=== PATIENT | female | born 1990 | race Hispanic/Latino ===

== ENCOUNTER 2021-12-21 21:11 | Inpatient (IN) | payer SELFPAY ==
[~2021-12-21] VITALS: Ht 149.9 cm; Wt 77.1 kg
[2021-12-21] MEDS ORDERED: SODIUM CHLORIDE 0.9% 1000ML 1,000 ML IV STA (21:27)
[2021-12-21 22:25] LABS: BASOPHILS # (AUTO) 0.1 (0.0-0.1); BASOPHILS % 0.7 % (0.0-1.0); EOSINOPHILS # (AUTO) 0.3 (0.0-0.4); HEMATOCRIT 38.1 % (34.2-44.1); HEMOGLOBIN 12.6 g/dL (12.0-16.0); LYMPHOCYTES # (AUTO) 2.1 (1.0-3.2); LYMPHOCYTES % 19.8 % (18.0-39.1); MEAN CORPUSCULAR HEMOGLOBIN 31.3 pg (28-32); MEAN CORPUSCULAR HGB CONC 33.1 g/dL (31-35); MEAN CORPUSCULAR VOLUME 94.5 fL (81-99); MONOCYTES # (AUTO) 0.9 (0.2-0.8); MONOCYTES % 8.2 % (4.4-11.3); NEUTROPHILS # (AUTO) 7.2 (2.1-6.9); NEUTROPHILS % 67.6 % (38.7-80.0); PLATELET COUNT 257 x10e3/uL (140-360); RED BLOOD COUNT 4.03 x10e6/uL (3.6-5.1)
[2021-12-21] MEDS ORDERED: FENTANYL CITRATE/PF 100MCG/2 ML INJ IV PRN (22:30)
[2021-12-21 22:43] LABS: ALBUMIN 3.5 g/dL (3.5-5.0); ALBUMIN/GLOBULIN RATIO 0.9 (0.8-2.0); ANION GAP 18.5 mmol/L (8-16); CALCIUM 9.3 mg/dL (8.4-10.2); CREATININE, SERUM 0.61 mg/dL (0.57-1.11); POTASSIUM 3.5 mmol/L (3.5-5.1)
[2021-12-21 22:45] LABS: CLARITY,URINE CLEAR (CLEAR); COLOR,URINE AMBER (YELLOW); LEUKOCYTE ESTERASE ,URINE NEGATIVE (NEGATIVE); NITRITE,URINE NEGATIVE (NEGATIVE)
[2021-12-21] MEDS ORDERED: ONDANSETRON HCL INJ 2MG/ML 2ML 2 MG/ML VIAL ONE (22:45)
[2021-12-21 22:46] LABS: BACTERIA,URINE RARE /HPF; EPITHELIAL CELLS,URINE FEW /LPF; KETONES,URINE >=160 (NEGATIVE); PROTEIN,URINE DIPSTICK NEGATIVE (NEGATIVE); RBC,URINE 0-5 /HPF (0-5); URINE UROBILINOGEN 1 mg/dL (0.2 - 1); WBC,URINE (MAN) 0-5 /HPF (0-5)
[2021-12-21] MEDS ORDERED: IOPAMIDOL 370 MG/ML 100 ML INFUS..BTL INJ ONE (23:24)
[2021-12-22] VITALS (10 sets, daily range): BP systolic 103–139; BP diastolic 62–88
[2021-12-22] MEDS: Morphine 4mg INJECTION 4 MG/ML INJ IV PRN ×4 (03:06→23:10)
[2021-12-22] MEDS: ONDANSETRON HCL INJ 2MG/ML 2ML 2 MG/ML VIAL IV PRN (03:06)
[2021-12-22] MEDS: DEXTROSE 5%/0.9% SOD CHL 1,000 ML IV SCH ×2 (09:55→23:10)
[2021-12-23] VITALS (7 sets, daily range): BP systolic 103–123; BP diastolic 66–80
[2021-12-23] MEDS: Morphine 4mg INJECTION 4 MG/ML INJ IV PRN (01:22)
[2021-12-23 06:21] LABS: BASOPHILS # (AUTO) 0.1 (0.0-0.1); BASOPHILS % 0.7 % (0.0-1.0); EOSINOPHILS # (AUTO) 0.6 (0.0-0.4); EOSINOPHILS % 6.4 % (0.0-6.0); HEMATOCRIT 34.8 % (34.2-44.1); HEMOGLOBIN 11.3 g/dL (12.0-16.0); LYMPHOCYTES # (AUTO) 1.6 (1.0-3.2); LYMPHOCYTES % 18.2 % (18.0-39.1); MEAN CORPUSCULAR HGB CONC 32.5 g/dL (31-35); MEAN CORPUSCULAR VOLUME 95.3 fL (81-99); MONOCYTES # (AUTO) 0.8 (0.2-0.8); MONOCYTES % 9.3 % (4.4-11.3); NEUTROPHILS # (AUTO) 5.6 (2.1-6.9); NEUTROPHILS % 64.5 % (38.7-80.0); PLATELET COUNT 232 x10e3/uL (140-360); RED BLOOD COUNT 3.65 x10e6/uL (3.6-5.1); RED CELL DISTRIBUTION WIDTH 13.2 % (11.7-14.4)
[2021-12-23 06:39] LABS: ALBUMIN 2.9 g/dL (3.5-5.0); ANION GAP 12.1 mmol/L (8-16); CALCIUM 8.5 mg/dL (8.4-10.2); CREATININE, SERUM 0.71 mg/dL (0.57-1.11); POTASSIUM 3.1 mmol/L (3.5-5.1)
[2021-12-23] MEDS: DEXTROSE 5%/0.9% SOD CHL 1,000 ML IV SCH (07:26)
[2021-12-23] MEDS ORDERED: ONDANSETRON HCL INJ 2MG/ML 2ML 2 MG/ML VIAL IV PRN (09:30)
[2021-12-23] MEDS: POTASSIUM CHLORIDE 10MEQ EA PO SCH ×3 (09:34→16:00)
[2021-12-23] MEDS: ACETAMINOPHEN/CODEINE 300MG - 30MG TAB PO PRN ×2 (14:05→17:53)
[2021-12-23] MEDS ORDERED: POTASSIUM CHLORIDE 10MEQ EA PO ONE (16:30)
[2021-12-24] VITALS (8 sets, daily range): BP systolic 120–133; BP diastolic 68–83
[2021-12-24 06:39] LABS: ALANINE AMINOTRANSFERASE 288 IU/L (0-55); ALBUMIN/GLOBULIN RATIO 0.9 (0.8-2.0); ALKALINE PHOSPHATASE 244 IU/L (40-150); ANION GAP 11.5 mmol/L (8-16); BLOOD UREA NITROGEN < 5 mg/dL (7-26); BUN/CREATININE RATIO 8 (6-25); CARBON DIOXIDE 26 mmol/L (22-29); CHLORIDE 105 mmol/L (98-107); CREATININE, SERUM 0.66 mg/dL (0.57-1.11); GLUCOSE 110 mg/dL (74-118); POTASSIUM 3.5 mmol/L (3.5-5.1); SODIUM 139 mmol/L (136-145)
[2021-12-24] MEDS: ACETAMINOPHEN/CODEINE 300MG - 30MG TAB PO PRN (14:17)
[2021-12-24] MEDS: ONDANSETRON HCL INJ 2MG/ML 2ML 2 MG/ML VIAL IV PRN (18:08)
[2021-12-24] MEDS: METOPROLOL TARTRATE 25 MG TAB PO SCH (21:22)
[2021-12-25] VITALS (8 sets, daily range): BP systolic 105–127; BP diastolic 66–89
[2021-12-25 05:57] LABS: BASOPHILS # (AUTO) 0.1 (0.0-0.1); BASOPHILS % 0.6 % (0.0-1.0); EOSINOPHILS # (AUTO) 0.6 (0.0-0.4); EOSINOPHILS % 5.9 % (0.0-6.0); HEMATOCRIT 37.8 % (34.2-44.1); HEMOGLOBIN 12.3 g/dL (12.0-16.0); LYMPHOCYTES # (AUTO) 1.6 (1.0-3.2); LYMPHOCYTES % 16.5 % (18.0-39.1); MEAN CORPUSCULAR HEMOGLOBIN 31.1 pg (28-32); MEAN CORPUSCULAR HGB CONC 32.5 g/dL (31-35); MEAN CORPUSCULAR VOLUME 95.5 fL (81-99); MONOCYTES # (AUTO) 0.8 (0.2-0.8); MONOCYTES % 8.5 % (4.4-11.3); NEUTROPHILS # (AUTO) 6.4 (2.1-6.9); NEUTROPHILS % 67.5 % (38.7-80.0); PLATELET COUNT 239 x10e3/uL (140-360); RED BLOOD COUNT 3.96 x10e6/uL (3.6-5.1); RED CELL DISTRIBUTION WIDTH 13.8 % (11.7-14.4)
[2021-12-25 06:26] LABS: ALBUMIN 3.2 g/dL (3.5-5.0); ALBUMIN/GLOBULIN RATIO 0.9 (0.8-2.0); ANION GAP 12.6 mmol/L (8-16); CALCIUM 8.9 mg/dL (8.4-10.2); CREATININE, SERUM 0.72 mg/dL (0.57-1.11); MAGNESIUM 2.1 MG/DL (1.3-2.1); PHOSPHORUS 3.3 MG/DL (2.3-4.7); POTASSIUM 3.6 mmol/L (3.5-5.1)
[2021-12-25 06:52] LABS: THYROID STIMULATING HORMONE 1.16 uIU/mL (0.350-4.940)
[2021-12-25] MEDS: METOPROLOL TARTRATE 25 MG TAB PO SCH ×2 (08:31→17:27)
[2021-12-25] MEDS ORDERED: SODIUM CHLORIDE 0.9% 250ML 250 ML ONE (09:25)
[2021-12-25] MEDS ORDERED: LACTATED RINGER'S 1,000 ML INJ ONE (15:00)
[2021-12-25] MEDS ORDERED: SUGAMMADEX SODIUM 200 MG/2 ML VIAL IV ONE (16:20)
[2021-12-25] MEDS ORDERED: ACETAMINOPHEN 1000 MG/100 ML 0 ML IV ONE ×2 (16:21→16:59)
[2021-12-25] MEDS ORDERED: HYOSCYAMINE SULFATE 0.5 MG/ML INJ ONE (16:21)
[2021-12-25] MEDS ORDERED: GLUCAGON FOR INJ 1 MG VIAL ONE ×2 (16:21)
[2021-12-25] MEDS ORDERED: SODIUM CHLORIDE 0.9% 1000ML 1,000 ML IV SCH (16:30)
[2021-12-25] MEDS ORDERED: ONDANSETRON HCL INJ 2MG/ML 2ML 2 MG/ML VIAL IV PRN ×2 (16:30→18:30)
[2021-12-25] MEDS ORDERED: IOPAMIDOL 300MG/ML 50ML INFUS..BTL IV ONE (16:35)
[2021-12-25] MEDS: ACETAMINOPHEN 325 MG TAB PO PRN (17:28)
[2021-12-25] MEDS ORDERED: PIPERACILLIN/TAZOBACTAM 4.5 GM in SODIUM CHLORIDE 0.9% 100 ML IV SCH (18:00)
[2021-12-26] VITALS (7 sets, daily range): BP systolic 100–123; BP diastolic 68–90
[2021-12-26 05:41] LABS: BASOPHILS # (AUTO) 0.1 (0.0-0.1); BASOPHILS % 0.7 % (0.0-1.0); EOSINOPHILS # (AUTO) 0.4 (0.0-0.4); EOSINOPHILS % 3.9 % (0.0-6.0); HEMATOCRIT 35.9 % (34.2-44.1); HEMOGLOBIN 12.2 g/dL (12.0-16.0); LYMPHOCYTES # (AUTO) 1.8 (1.0-3.2); LYMPHOCYTES % 19.3 % (18.0-39.1); MEAN CORPUSCULAR HEMOGLOBIN 31.4 pg (28-32); MEAN CORPUSCULAR VOLUME 92.3 fL (81-99); MONOCYTES # (AUTO) 0.8 (0.2-0.8); NEUTROPHILS # (AUTO) 6.1 (2.1-6.9); NEUTROPHILS % 66.1 % (38.7-80.0); PLATELET COUNT 241 x10e3/uL (140-360); RED BLOOD COUNT 3.89 x10e6/uL (3.6-5.1); RED CELL DISTRIBUTION WIDTH 14.1 % (11.7-14.4)
[2021-12-26 06:13] LABS: ALBUMIN 3.1 g/dL (3.5-5.0); ALBUMIN/GLOBULIN RATIO 0.8 (0.8-2.0); ANION GAP 15.5 mmol/L (8-16); CALCIUM 9.3 mg/dL (8.4-10.2); CREATININE, SERUM 0.65 mg/dL (0.57-1.11); POTASSIUM 3.5 mmol/L (3.5-5.1)
[2021-12-26] MEDS: METOPROLOL TARTRATE 25 MG TAB PO SCH ×2 (08:43→17:00)
[2021-12-26] MEDS ORDERED: FENTANYL CITRATE/PF 100MCG/2 ML INJ ONE (12:37)
[2021-12-26] MEDS ORDERED: LACTATED RINGER'S 1,000 ML INJ ONE (13:30)
[2021-12-26] MEDS ORDERED: LACTATED RINGER'S 1,000 ML ONE (13:46)
[2021-12-26] MEDS ORDERED: IOPAMIDOL 300MG/ML 50ML INFUS..BTL IV ONE (15:43)
[2021-12-26] MEDS ORDERED: INDOMETHACIN 50 MG SUPP.RECT RC ONE (15:44)
[2021-12-26] MEDS ORDERED: GLUCAGON FOR INJ 1 MG VIAL ONE (16:20)
[2021-12-26] MEDS ORDERED: LIDOCAINE HCL 2% LOCAL INJ 5 ML SDV VIAL INJ ONE (17:24)
[2021-12-26] MEDS ORDERED: SUCCINYLCHOLINE CHLORIDE 20 MG/ML 10ML VIAL ONE (17:24)
[2021-12-26] MEDS ORDERED: SEVOFLURANE INHAL SOLN 250 ML PEN BTL ONE (17:24)
[2021-12-26] MEDS ORDERED: PROPOFOL IV EMULSION 10 MG/ML 20 ML VIAL ONE (17:24)
[2021-12-26] MEDS ORDERED: ONDANSETRON HCL INJ 2MG/ML 2ML 2 MG/ML VIAL ONE (17:24)
[2021-12-26] MEDS ORDERED: POVIDONE IODINE 0.05% 0.05 % ML PO ONE (17:24)
[2021-12-26] MEDS ORDERED: DEXAMETHASONE SOD PHOS INJ 4 MG/ML SDV ONE (17:24)
[2021-12-26] MEDS: ACETAMINOPHEN 325 MG TAB PO PRN (23:20)
[2021-12-27] VITALS (8 sets, daily range): BP systolic 91–135; BP diastolic 60–91
[2021-12-27 06:26] LABS: ALBUMIN 3.2 g/dL (3.5-5.0); ALBUMIN/GLOBULIN RATIO 0.9 (0.8-2.0); ANION GAP 15.8 mmol/L (8-16); CALCIUM 9.1 mg/dL (8.4-10.2); CREATININE, SERUM 0.67 mg/dL (0.57-1.11); POTASSIUM 3.8 mmol/L (3.5-5.1)
[2021-12-27] MEDS: METOPROLOL TARTRATE 25 MG TAB PO SCH ×2 (08:33→17:00)
[2021-12-27 16:50] LABS: ALBUMIN 3.2 g/dL (3.5-5.0); ALBUMIN/GLOBULIN RATIO 0.9 (0.8-2.0); ANION GAP 13.1 mmol/L (8-16); CALCIUM 9.1 mg/dL (8.4-10.2); CREATININE, SERUM 0.79 mg/dL (0.57-1.11); POTASSIUM 3.1 mmol/L (3.5-5.1)
[2021-12-28] VITALS: BP 108/68
[2021-12-28 04:00] VITALS: BP 102/62
[2021-12-28 06:47] LABS: ALBUMIN 3.1 g/dL (3.5-5.0); ALBUMIN/GLOBULIN RATIO 0.9 (0.8-2.0); ANION GAP 15.3 mmol/L (8-16); CALCIUM 8.9 mg/dL (8.4-10.2); CREATININE, SERUM 0.68 mg/dL (0.57-1.11); POTASSIUM 3.3 mmol/L (3.5-5.1)
[2021-12-28 07:53] VITALS: BP 104/65
[2021-12-28 08:00] VITALS: BP 104/65
[2021-12-28] MEDS: METOPROLOL TARTRATE 25 MG TAB PO SCH (08:36)
[2021-12-28 11:15] VITALS: BP 100/64
[2021-12-28] MEDS ORDERED: ONDANSETRON HCL 4 MG ORAL DISINTEGRATING TAB PO PRN (12:00)
[2021-12-29] MEDS ORDERED: PANTOPRAZOLE SOD 40 MG TABEC PO SCH (07:30)
== END 2021-12-28 14:55 | disposition home or self-care (01) | DRG 446 ==
LOC: ER 21:22 → ERHOLD 12-22 00:57 → MED/SURG2 12-22 02:24
PROVIDERS: ADMIT Internal Medicine; ATTEND Internal Medicine
PROC: 02HV33Z Insertion of Infusion Device into Superior Vena Cava, Percutaneous Approach (ICD-10-PCS; 2021-12-22)
PROC: BF101ZZ Fluoroscopy of Bile Ducts using Low Osmolar Contrast (ICD-10-PCS; 2021-12-26)
PROC: 0FC98ZZ Extirpation of Matter from Common Bile Duct, Via Natural or Artificial Opening Endoscopic (ICD-10-PCS; principal; 2021-12-26 15:40)
DX: K80.51 Calculus of bile duct without cholangitis or cholecystitis with obstruction (principal); Z20.822 Contact with and (suspected) exposure to COVID-19; K76.0 Fatty (change of) liver, not elsewhere classified
CPT/HCPCS: 0223U; 36415; 36569; 43260; 71045; 74176; 74183; 74328; 80053; 81001; 83690; 83735; 84100; 84443; 84702; 85025; 94799; 96361; 99284; J0330; J1100; J1610; J1980; J2001; J2270; J2405; J2543; J3010; J7030; J7042; J7050; J7121; Q9967